=== PATIENT | female | born 1960 | race African-American/Black ===

== ENCOUNTER 2024-05-28 17:08 | Emergency (ER) | payer MEDICAID, MEDICARE, OTHER ==
[~2024-05-28] VITALS: Ht 149.9 cm; Wt 104.0 kg
[~2024-05-28 17:08] MED LIST: ASA; DIABETIC; HTN MEDS
[2024-05-28 17:15] VITALS: O2SAT 99
[2024-05-28 17:43] VITALS: BP 143/83; PULSE 95; TEMP 97.9; O2SAT 100
[2024-05-28 20:30] VITALS: RESP 19
[2024-05-28] MEDS: KETOROLAC 15MG/ML VIAL IM ONE (20:35)
[2024-05-28] MEDS: CYCLOBENZAPRINE 10MG TABLET PO ONE (20:35)
[2024-05-28] MEDS: LIDOCAINE 5% PATCH TOP SCH (20:55)
[2024-05-28] MEDS ORDERED: LIDO700A15 TP (21:00)
[2024-05-28] MEDS ORDERED: NAPR-1176 MT (21:00)
== END 2024-05-28 21:10 | disposition home or self-care (01) ==
LOC: ER 17:08
DX: M54.2 Cervicalgia (principal); E11.9 Type 2 diabetes mellitus without complications; E78.00 Pure hypercholesterolemia, unspecified; I10 Essential (primary) hypertension; Z98.51 Tubal ligation status; Z79.899 Other long term (current) drug therapy
CPT/HCPCS: 99283; 96372; J1885